=== PATIENT | female | born 1990 | race Hispanic/Latino ===

== ENCOUNTER 2024-03-01 07:37 | Emergency (ER) | payer BC, MEDICAID ==
[~2024-03-01] VITALS: Ht 170.2 cm; Wt 67.1 kg
[2024-03-01 08:00] LABS: BASOPHILS # (AUTO) 0.08 K/uL (0.00-0.20); BASOPHILS % (AUTO) 0.6 % (0.0-5.0); EOSINOPHILS # (AUTO) 4.07 K/uL (0.00-0.70); EOSINOPHILS % (AUTO) 31.3 % (0.0-8.0); HEMATOCRIT 33.2 % (36-48); IMMATURE GRANULOCYTE ABSOLUTE 0.04 K/uL (0-1); LYMPHOCYTES # (AUTO) 2.2 K/uL (1.0-4.8); LYMPHOCYTES % (AUTO) 16.8 % (21.0-51.0); MEAN CORPUSCULAR HEMOGLOBIN 29.8 pg (27.0-33.0); MEAN CORPUSCULAR HGB CONC 33.7 g/dL (32.0-36.0); MEAN CORPUSCULAR VOLUME 88.3 fL (79-99); MONOCYTES # (AUTO) 0.7 K/uL (0.1-1.0); MONOCYTES % (AUTO) 5.1 % (3.0-13.0); NEUTROPHILS % (AUTO) 45.9 % (40.0-77.0); PLATELET COUNT (AUTO) 320 K/uL (130-400); RED BLOOD CELL COUNT(AUTO) 3.76 MIL/uL (4.00-5.50); RED CELL DISTRIBUTION WIDTH 13.7 % (11.0-15.5)
[2024-03-01 08:19] LABS: CREATININE 0.8 mg/dL (0.5-1.0); POTASSIUM 3.7 mmol/L (3.5-5.1)
[2024-03-01] MEDS: LACTATED RINGERS 1000ML 1,000 ML IV ONE (08:19)
[2024-03-01 08:33] LABS: APPEARANCE,URINE CLEAR (CLEAR); BILIRUBIN,URINE NEGATIVE (NEGATIVE); COLOR,URINE LIGHT-YELLOW (YELLOW); GLUCOSE, URINE (UA) NEGATIVE (NEGATIVE); KETONES,URINE NEGATIVE (NEGATIVE); LEUKOCYTE ESTERASE ,URINE NEGATIVE Leu/uL (NEGATIVE); NITRATE,URINE NEGATIVE (NEGATIVE); OCCULT BLOOD,URINE LARGE (NEGATIVE); PROTEIN,URINE NEGATIVE (NEGATIVE); UROBILINOGEN,URINE 0.2 mg/dL (0.2-1.0)
[2024-03-01 08:34] LABS: ADD UA MICROSCOPIC YES
[2024-03-01 08:38] LABS: BACTERIA,URINE RARE /HPF (None Seen); MUCUS,URINE RARE LPF (None Seen); RBC,URINE 51-100 /HPF (0-1); SQUAMOUS EPITHELIAL CELL,UR RARE /HPF (0-2); UNCLASSIFIED CRYSTAL 2 /HPF (None Seen)
[2024-03-01 09:29] VITALS: BP 108/78; PULSE 68; RESP 16; O2SAT 97
[2024-03-01] MEDS ORDERED: ACET-66 PO (09:57)
== END 2024-03-01 10:08 | disposition home or self-care (01) ==
LOC: EDH 07:37
DX: O20.0 Threatened abortion (principal); J45.909 Unspecified asthma, uncomplicated; O26.891 Other specified pregnancy related conditions, first trimester; R10.2 Pelvic and perineal pain; Z3A.09 9 weeks gestation of pregnancy; Z98.890 Other specified postprocedural states
CPT/HCPCS: 36415; 76801; 80048; 81001; 84702; 85025; 87088

== ENCOUNTER 2024-11-04 19:13 | Emergency (ER) | payer BC ==
[~2024-11-04] VITALS: Ht 170.2 cm; Wt 79.8 kg
[~2024-11-04 19:13] MED LIST: ACET-66 PO
[2024-11-04 19:19] VITALS: TEMP 98.2
[2024-11-04 19:40] VITALS: BP 132/59; PULSE 81; RESP 18; O2SAT 98
[2024-11-04 20:07] LABS: BASOPHILS # (AUTO) 0.03 K/uL (0.00-0.20); BASOPHILS % (AUTO) 0.4 % (0.0-5.0); EOSINOPHILS # (AUTO) 1.01 K/uL (0.00-0.70); EOSINOPHILS % (AUTO) 13.4 % (0.0-8.0); HEMATOCRIT 31.8 % (36-48); IMMATURE GRANULOCYTE ABSOLUTE 0.03 K/uL (0-1); LYMPHOCYTES # (AUTO) 1.9 K/uL (1.0-4.8); LYMPHOCYTES % (AUTO) 25.3 % (21.0-51.0); MEAN CORPUSCULAR HEMOGLOBIN 30.8 pg (27.0-33.0); MEAN CORPUSCULAR VOLUME 90.6 fL (79-99); MONOCYTES # (AUTO) 0.5 K/uL (0.1-1.0); MONOCYTES % (AUTO) 6.1 % (3.0-13.0); NEUTROPHILS # (AUTO) 4.1 K/uL (1.8-7.7); NEUTROPHILS % (AUTO) 54.4 % (40.0-77.0); PLATELET COUNT (AUTO) 307 K/uL (130-400); RED BLOOD CELL COUNT(AUTO) 3.51 MIL/uL (4.00-5.50); RED CELL DISTRIBUTION WIDTH 13.2 % (11.0-15.5); WHITE BLOOD COUNT (AUTO) 7.5 K/uL (4.8-10.8)
--- NOTE | 2024-11-04 20:22 | HMCIMG ---
US OB >14 WEEKS HISTORY: ABD PAIN APPROX 32 WEEKS . FINDINGS: Single fetus in cephalic presentation. heart rate: 137 bpm. Amniotic fluid index: 9.7 cm- normal. Placenta: Anterior and grade 2. No gross structural abnormality noted. brain with normal lateral ventricles, choroid plexus, cerebellum, and cisterna magna, stomach, kidneys and urinary bladder, spine, cord insertion, three-vessel cord, and a four-chamber view of the heart are all present and appear normal. BIOMETRIC DATA: Biparietal diameter: 8.6 cm, consistent with gestational age of 34.5. Head circumference: 30.9 cm, consistent with gestational age of 34.4. Abdominal circumference: 28.3 cm, consistent with gestational age of 32.3. Femoral length: 6 cm, consistent with gestational age of 31.4. weight: 2000 grams. IMPRESSION: Single intrauterine of 32 weeks 2 days.
[2024-11-04 20:25] LABS: CREATININE 0.5 mg/dL (0.5-1.0); POTASSIUM 3.6 mmol/L (3.5-5.1)
--- NOTE | 2024-11-04 20:50 | ERN ---
General Chief Complaint: OB>20 weeks gest. Stated Complaint: ABDOMINAL PAIN, 32WKS Time Seen by MD: 19:16 Time Seen by Midlevel: 19:16 Source: patient History of Present Illness Initial Comments Patient is a 34-year-old female who is currently 31 weeks and five days . She states she was driving when she had a sudden onset of right-sided lower abdominal pain. She immediately reported to the ER for further evaluation. She is followed by OBGYN Dr. Curtis. Patients specifically denies any vaginal bleeding or vaginal pressure. Allergies: Coded Allergies: No Known Allergies (Unverified Allergy, Unknown, 03/01/24) Home Meds Active Scripts Acetaminophen (Tylenol) 500 Mg Tab, 500 MG PO q6 PRN for PAIN LEVEL 1 TO 5 for 5 Days, #30 TAB Prov:RAFIA IBARRA MD 03/01/24 Past Medical History Past Medical History: Asthma Past Surgical History: Other Surgical History Other: SINUS Female( History) LMP: Dec 24, 2023 : 4 Para: 2 Aborts: 1 ROS Dictation CONSTITUTIONAL: Negative except for HPI HEAD/FACE: Negative except for HPI EENT: Negative except for HPI RESPIRATORY: Negative except for HPI GASTROINTESTINAL/ABDOMINAL: Negative except for HPI GENITOURINARY: Negative except for HPI MUSCULOSKELETAL: Negative except for HPI INTEGUMENTARY: Negative except for HPI NEUROLOGICAL/PSYCH: Negative except for HPI HEMATOLOGIC/LYMPHATIC: Negative except for HPI All Systems Negative, Except as noted above. 13 point review of systems assessed and all negative except for above. Physical Exam Physical Exam Dictation Vital Signs reviewed General Appearance: Alert, oriented x 3, no acute distress, well developed, nourished. Head and Face: non-traumatic. Eyes: PERRL, pink conjunctivas, eyelid no trauma, anterior chamber with arcus senilis. Ears: Pinnas intact and no signs of trauma or erythema ear canals clear and no discharge TM no erythema Nose: No discharge, no bleeding. Oropharynx: Mouth normal, tongue pink, pharynx clear,no erythema, tonsils no exudates, no abscesses noted, mucous membrane moist Neck: Supple, non-tender, no thyromegaly, no masses, no JVD, no bruits Breast:Deferred Chest:No tenderness, no crepitus, no paradoxical movement, no retractions Lungs:Clear, well-ventilated, symmetric, no rales, no wheezing, no rhonchi, no stridor, good breath sounds bilaterally Heart: Regular rate, regular rhythm, no murmur, no gallops Vascular: no peripheral edema, Abdomen: Soft, positive bowel sounds, nondistended, no guarding, nontender, no rebound, no masses no hepatomegaly, no splenomegaly, no Trinh's sign, no hernias. Rectal: Deferred Genital: Deferred Neurological: Normal speech, motor function intact, sensory function intact Musculoskeletal: Neck nontender, full range of motion, back nontender, full range of motion, Extremities: nontender, full range of motion Skin: Color pink, dry, no turgor, no rash, no lacerations, no abrasions, no contusions. Lymphatic: Deferred Results Laboratory and Microbiology Lab and Micro Result Laboratory Tests Test 11/04/24 19:50 White Blood Count 7.5 K/uL (4.8-10.8) Red Blood Count 3.51 MIL/uL (4.00-5.50) L Hemoglobin 10.8 g/dL (12.0-16.0) L Hematocrit 31.8 % (36-48) L Mean Corpuscular Volume 90.6 fL (79-99) Mean Corpuscular Hemoglobin 30.8 pg (27.0-33.0) Mean Corpuscular Hemoglobin Concent 34.0 g/dL (32.0-36.0) Red Cell Distribution Width 13.2 % (11.0-15.5) Platelet Count 307 K/uL (130-400) Mean Platelet Volume 10.4 fL (7.5-10.5) Immature Granulocyte % (Auto) 0.4 % (0-1) Neutrophils (%) (Auto) 54.4 % (40.0-77.0) Lymphocytes (%) (Auto) 25.3 % (21.0-51.0) Monocytes (%) (Auto) 6.1 % (3.0-13.0) Eosinophils (%) (Auto) 13.4 % (0.0-8.0) H Basophils (%) (Auto) 0.4 % (0.0-5.0) Neutrophils # (Auto) 4.1 K/uL (1.8-7.7) Lymphocytes # (Auto) 1.9 K/uL (1.0-4.8) Monocytes # (Auto) 0.5 K/uL (0.1-1.0) Eosinophils # (Auto) 1.01 K/uL (0.00-0.70) H Basophils # (Auto) 0.03 K/uL (0.00-0.20) Absolute Immature Granulocyte (auto 0.03 K/uL (0-1) Nucleated Red Blood Cells 0.0 % (0.0-0.19) Sodium Level 136 mmol/L (136-145) Potassium Level 3.6 mmol/L (3.5-5.1) Chloride Level 102 mmol/L (101-111) Carbon Dioxide Level 25 mmol/L (21-32) Blood Urea Nitrogen 6 mg/dL (7-18) L Creatinine 0.5 mg/dL (0.5-1.0) Glomerular Filtration Rate Calc 125 mL/min (>90) Random Glucose 81 mg/dL (70-105) Total Calcium 8.2 mg/dL (8.5-10.1) L Labs Reviewed?: Yes MDM MDM: Patient is a 34-year-old female who is currently 31 weeks and five days . She states she was driving when she had a sudden onset of right-sided lower abdominal pain. She immediately reported to the ER for further evaluation. She is followed by OBGYN Dr. Curtis. Patients specifically denies any vaginal bleeding or vaginal pressure. On physical examination patient is in no acute respiratory distress. Initial vital signs are stable. Patient does have some reproducible right-sided lower abdominal pain. Will obtain basic labs and an ultrasound. Given that our hospital no longer has [employer] operator services my plan was to transfer the patient for higher level of care. I attempted to consult OBGYN doctor Curtis but we did not receive a call back. There was a total of two pages sent out. An ultrasound was performed which does not reveal any acute abnormalities. The patient decided to leave against medical advice stating that she did not want to be transferred. She states that if anything elsewhere to happened she will report to the ER again. She states she only wanted an ultrasound. I did discuss the risks of signing out against medical advice and the patient agrees and understands and would still like to sign out AMA. Differential diagnosis: Premature rupture of membranes, demise, muscle strain There are no social concerns with this patient. Prescription drug management Prescriptions will include: None Medical management and examination interpretation discussions were had by me with other qualified healthcare professionals as indicated for the patient's care. ED Course Orders Procedure Category Date Status Time Cbc With Differential LAB 11/04/24 Complete 19:31 Basic Metabolic Panel LAB 11/04/24 Complete 19:31 Type And Screen BBK 11/04/24 Complete 19:31 Us Ob >14 Weeks US 11/04/24 Resulted 19:31 Vital Signs Date Time Temp Pulse Resp B/P (MAP) Pulse Ox O2 Delivery O2 Flow Rate FiO2 11/04/24 19:40 81 18 132/59 98 Room Air* 0 21 11/04/24 19:19 98.2 66 20 93/68 99 Room Air DX & DISP Disposition: Discharge Departure Impression: Primary Impression: Left against medical advice Condition: Stable Referrals: ERMIAS CLAYTON MD (PCP) I have reviewed the case, and I agree with I performed the substantive portion of the visit. I have reviewed and personally made and approve the management plan that is documented in the note by myself or the [facility]. I acknowledge for responsibility for the patient's management plan. FARSHAD VAZQUEZ Nov 04, 2024 20:50
--- NOTE | 2024-11-04 20:50 | NUR ---
PATIENT CALLED ME INTO THE ROOM, PATIENT STATED SHE IS FEELING BETTER AND WANTS TO LEAVE. PATIENT ASKED FOR AMA PAPERWORK TO SIGN. PATIENT SIGNED AMA PAPERWORK, SPOUSE WAS AT BEDSIDE.
== END 2024-11-04 21:00 | disposition left against medical advice (07) ==
LOC: EDH 19:13
DX: O26.893 Other specified pregnancy related conditions, third trimester (principal); R10.31 Right lower quadrant pain; O99.513 Diseases of the respiratory system complicating pregnancy, third trimester; J45.909 Unspecified asthma, uncomplicated; Z3A.32 32 weeks gestation of pregnancy
CPT/HCPCS: 36415; 76805; 80048; 85025; 86850; 86900; 86901; 99284